=== PATIENT | female | born 1930 | race Caucasian/White ===

== ENCOUNTER 2016-08-23 16:57 | Emergency (ER) | payer OTHER ==
[2016-08-23 17:02] VITALS: BP 188/69
[2016-08-23] MEDS ORDERED: ZOFRAN PO ONE (17:42)
--- NOTE | 2016-08-23 17:44 | PROVIDER DOCUMENTATION ---
HPI-Head Injury - General Source: patient, family - History of Present Illness-Head Injury Head Injury Location: reports: occipital Other injuries associated with incident:: reports: none Quality of Pain: reports: dull Severity: reports: mild Onset/Duration: reports: abrupt, just prior to arrival Timing: reports: improving Method of Injury: reports: direct blow, fell Loss of Consciousness: no loss of consciousness Modifying Factors: improves with: nothing Injury Associated Symptoms: reports: headaches, nausea. denies: back/neck pain , dizziness, vomiting Locality of Occurance: Home Similar Symptoms Previously?: Yes Recently seen or treated by another doctor?: No <Brandon Oliveira - Last Filed: 08/23/16 17:52> <Tete Fonseca - Last Filed: 08/23/16 18:19> - General Chief Complaint: Fall Stated Complaint: fall Time Seen by Provider: 08/23/16 17:41 Allergies/Adverse Reactions: Patient Allergies Allergy/AdvReac Type Severity Reaction Status Date / Time No Known Allergies Allergy Verified 08/23/16 17:55 Home Medications: Aspirin 81 mg PO DAILY 04/18/13 Atorvastatin Calcium [Lipitor] 10 mg PO DAILY 04/18/13 Levothyroxine [Synthroid] 75 microgm PO DAILY 04/19/13 Potassium Chloride [Klor-Con 10] 10 meq PO DAILY 04/19/13 Losartan/Hctz [Hyzaar 100/12.5 mg Tab] 1 each PO DAILY 08/02/13 Cholecalciferol (Vitamin D3) [Vitamin D] 2,000 units PO DAILY 07/04/15 Famotidine [Pepcid] 40 mg PO BID 07/04/15 Psyllium Seed (with Sugar) [Metamucil Packet] 1 each PO DAILY 07/04/15 l Gasseri/B Bifidum/B Longum [Sands' Colon Health Capsule] 1 each PO BID - History of Present Illness-Head Injury Nature of Presenting Problem: patient is a 86 y/o F that presents to the ER with head injury and laceration after falling backwards. Patient had no loc. She shuffles when she walks. She has some nausea. (Brandon Oliveira) Review of Systems - Adult - REVIEW OF SYSTEMS - ADULT ROS:: ROS per family Constitutional: reports: no symptoms reported Eyes: denies: decreased vision, blurred vision, double vision Ears, Nose, Mouth & Throat: denies: epistaxis, loose teeth, mouth/dental pain Cardiovascular: denies: chest pain, palpitations, syncope Respiratory: denies: cough, shortness of breath, wheezing Gastrointestinal: reports: nausea. denies: abdominal pain, diarrhea, vomiting Genitourinary: reports: no symptoms reported Musculoskeletal: reports: no symptoms reported Integumentary: reports: see HPI Neurological: reports: headache/migraines. denies: dizziness/vertigo, syncope Psychiatric: reports: no symptoms reported Endocrine: reports: no symptoms reported Hematologic/Lymphatic: reports: no symptoms reported Allergic/Immunologic: reports: no symptoms reported All Other Systems: Reviewed and Negative <Brandon Oliveira - Last Filed: 08/23/16 17:52> Past History - Adult - PAST MEDICAL HISTORY-ADULT Review of Records: reports: Old Records Reviewed, Nursing Assessment Review, Medications Reviewed Cardiovascular: reports: HTN Neurological: reports: dementia Endocrine/Immune: reports: thyroid disorder (hypo) - PRIOR SURGERIES/PROCEDURES Surgical/Procedure History: reports: hysterectomy, joint replacement (TKA), other (left carotid enderectomy) - IMMUNIZATION STATUS Childhood Immunizations: See Nurse Assessment Flu Vaccine: See Nurse Assessment - FAMILY HISTORY Family History: reviewed, not pertinent - SOCIAL HISTORY Living Situation: family <Brandon Oliveira - Last Filed: 08/23/16 17:52> Physical Exam- Neurological - Physical Exam-Neuro Initial Vital Signs Reviewed: Yes General Appearance: alert, no apparent distress Eye Exam: bilateral eye: normal inspection, PERRL HENMT: moist mucous membranes, normal ENT inspection, TMs normal Head Injury: lacerations (jagged area posterior head about 2.5cm). negative: Srinivasan's Sign, raccoon eyes Neck: non-tender, full range of motion, normal inspection Respiratory: lungs clear, normal breath sounds, no respiratory distress, no accessory muscle use Cardiovascular: regular rate, rhythm, no edema, no murmur Abdominal Exam: normal bowel sounds, non tender, soft Extremity: normal range of motion, non-tender, normal inspection, no pedal edema , pelvis stable inspector assembly Exam: normal hearing, normal speech, PERRL Motor/Sensory: no motor deficit, no sensory deficit Neurologic: inspector assembly II-XII nml as tested, no motor/sensory deficits Integumentary: normal turgor, warm/dry Psych/Mental Status: normal mood/affect, normal thought content, normal thought process, oriented x 3 - Glascow Coma Scale Best Eye Response: (4) open spontaneously Best Verbal Response: (5) oriented Best Motor Response: (6) obeys commands Total Glascow Score: 15 <Brandon Oliveira - Last Filed: 08/23/16 17:52> Progress - CHANGE OF SHIFT REPORT (ED Provider) Report Given and Care Transferred to:: Time of Transfer: 17:53 Items Pending: CT/MRI Results, Other (laceration repair) Tentative Impression of Patient: head injury, laceration <Brandon Oliveira - Last Filed: 08/23/16 17:52> - CT/MRI 1 CT Study: Head Impression: Normal CT Results: normal <Tete Fonseca - Last Filed: 08/23/16 18:19> - PLAN OF CARE/RESULTS Progress/Plan/Lab Results: plan of care-ct head and laceration repair (Brandon Oliveira) plan of care: imaging, wound repair Orders Category Date Time Status Wound Care DIRECTED Care 08/23/16 17:47 Active HEAD W/O CONTRAST [CT] Stat Exams 08/23/16 17:02 Draft Lidocaine 1%/Epi 1:100,000 [Xylocaine 1%/Epi 1:100,000] Med 08/23/16 18:09 Discontinued 20 ml .ROUTE .STK-MED ONE Ondansetron [Zofran] Med 08/23/16 17:42 Discontinued 4 mg PO NOW ONE Vital Signs - 24 hr 08/23/16 16:59 Temperature 98.0 F Pulse Rate 78 Respiratory 16 Rate Blood Pressure 188/69 O2 Sat by Pulse 97 Oximetry (Tete Fonseca) Procedures - LACERATION/WOUND REPAIR/FB Head Wound Location: Other: global Wound Length: 1.5 cm Wound's Depth, Shape: superficial Wound Explored/Foreign Body: clean Irrigated with Saline?: Yes Anesthetic: 1%, Lidocaine w/ Epinephrine Wound Repaired with: [place]-Small (3) <Tete Fonseca - Last Filed: 08/23/16 18:19> Departure <Brandon Oliveira - Last Filed: 08/23/16 17:52> - Departure Time of Disposition Order: 18:17 Certified Medical Emergency: Emergent <Tete Fonseca - Last Filed: 08/23/16 18:19> - Departure DIAGNOSIS: Scalp laceration Qualifiers: Encounter type: initial encounter Qualified Code(s): S01.01XA - Laceration without foreign body of scalp, initial encounter Disposition: HOME 01 Condition: Stable Additional Instructions: ED Follow Up Instructions: You have been treated by a care provider in the Emergency Department. These instructions are being provided to you so you can have an understanding of how to care for yourself upon discharge. Upon discharge from the Emergency Department, you are responsible for making arrangements for follow-up care by a physician of your choice. Come back in 7 days for staple removal. Take all prescribed medications as directed. Return to the Emergency Department immediately for any new or worsening symptoms. You may call the Physician Referral phone number at [phone] to obtain a list of Physicians who are taking new patients. Referrals: Ike Garduno MD [Primary Care Provider] - Attestation - Scribe Verification/Attestation Scribe:: Brandon Oliveira Acting as Scribe for:: Karly Samaniego Scribe documention review:: This chart was documented by a scribe and accurately reflects the service the provider performed and the decisions made by the provider. <Brandon Oliveira - Last Filed: 08/23/16 17:52> - Scribe Verification/Attestation Scribe:: Tete Fonseca Acting as Scribe for:: Pop Reyes Scribe documention review:: This chart was documented by a scribe and accurately reflects the service the provider performed and the decisions made by the provider. <Tete Fonseca - Last Filed: 08/23/16 18:19> Physician Attestation - Physician Attestation I, the provider, attest to the following statement:: Karly Samaniego Physician documentation Attestation:: This documentation recorded by the scribe accurately reflects the service I personally performed and the decisions made by me. <Brandon Oliveira - Last Filed: 08/23/16 17:52>
[2016-08-23] MEDS ORDERED: XYLOCAINE 1%/EPI 1:100,000 ONE (18:09)
--- NOTE | 2016-08-23 18:16 | Diag Imaging Result Document ---
PROCEDURE NAME: HEAD W/O CONTRAST - 08/23/2016 CT BRAIN WITHOUT CONTRAST: Dose reduction technique not used. FINDINGS: Compared to 07/04/2015. No parenchymal hemorrhage. No epidural or subdural hematoma. No subarachnoid hemorrhage. No skull fracture. There is ventricular prominence similar to the prior exam. There are chronic microvascular ischemic changes. No sinus opacification and no air-fluid levels. IMPRESSION: 1. No hemorrhage. No injury. 2. Ventricular prominence with chronic microvascular ischemic changes. A preliminary report was given at 5:49 PM.
== END 2016-08-23 18:26 | disposition home or self-care (01) ==
LOC: EDBD → ED 16:57
DX: S01.01XA Laceration without foreign body of scalp, initial encounter (principal); R51 Headache; R11.0 Nausea; R94.09 Abnormal results of other function studies of central nervous system; I10 Essential (primary) hypertension; E03.9 Hypothyroidism, unspecified; Z79.82 Long term (current) use of aspirin; Z79.899 Other long term (current) drug therapy; Z96.659 Presence of unspecified artificial knee joint; W19.XXXA Unspecified fall, initial encounter
CPT/HCPCS: 70450

== ENCOUNTER 2019-01-17 12:14 | Inpatient (IN) ==
--- NOTE | 2019-01-17 13:33 | Diag Imaging Result Doc PS360 ---
EXAM: CHEST-2 VIEWS HISTORY: ACUTE BRONCHITIS TECHNIQUE: Chest two views COMPARISON: 01/15/2019 FINDINGS: The lungs are well expanded. Tiny left pleural effusion. No cardiomegaly. Mild increased interstitial markings throughout both lungs. IMPRESSION: Small infiltrates versus mild pulmonary edema. Electronically signed by Ming Rizo 01/17/2019 1:31 PM
[2019-01-17 14:04] LABS: BASO# 0.03 X1000 (0.0-0.2); BASO% 0.3 % (0.0-0.8); EOS# 0.49 X1000 (0.0-0.7); EOS% 4.5 % (0.0-10.0); HEMATOCRIT 38.6 % (37.0-47.0); HEMOGLOBIN 12.8 g/dL (12.0-16.0); IMM GRAN# 0.04 X1000 (0.0-0.04); IMM GRAN% 0.4 % (0.0-0.5); LYMPH# 1.54 X1000 (1.2-3.4); LYMPH% 14.1 % (20.5-51.1); MCH 29.9 PG (27-31); MCHC 33.2 g/dL (33-37); MCV 90.2 FL (81-99); MONO# 1.32 X1000 (0.11-0.59); MONO% 12.1 % (1.7-9.3); MPV 10.1 FL (7.4-10.4); NEUT# 7.47 X1000 (1.4-6.5); NEUT% 68.6 % (42.2-75.2); PLT 252 X1000 (130-400); RBC 4.28 XMIL (4.2-5.4); RDW 12.6 % (11.5-14.5); WBC 10.89 X1000 (4.8-10.8)
--- NOTE | 2019-01-17 14:21 | EKG Report ---
Test Performed on : 01/17/2019 2:01:00 PM Test Reason : ACUTE BRONCHITIS Blood Pressure : / mmHG Vent. Rate : 088 BPM Atrial Rate : 088 BPM P-R Int : 162 ms QRS Dur : 076 ms QT Int : 358 ms P-R-T Axes : 044 011 057 degrees QTc Int : 433 ms Normal sinus rhythm. Normal ECG When compared with ECG of 04-JUL-2015 21:38, No significant change was found Confirmed by Jose MENDEZ, Maik Berg ([id number]) on 01/19/2019 11:59:03 AM
[2019-01-17 14:30] LABS: ALB/GLOB RATIO 0.9; ALBUMIN 3.4 g/dL (3.5-5.0); CALCIUM 8.8 mg/dL (8.8-10.2); CREATININE 1.2 mg/dL (0.5-0.9); POTASSIUM 3.9 mmol/L (3.5-5.1); TOTAL BILIRUBIN 0.46 mg/dL (0.20-1.00); TOTAL PROTEIN 7.1 g/dL (6.3-8.3)
[2019-01-17] MEDS: ROCEPHIN 1 GM in NS 50 ML IV SCH (14:39)
[2019-01-17] MEDS: ROBITUSSIN-DM PO PRN ×2 (14:40→22:19)
[2019-01-17] MEDS: POTASSIUM CHLORIDE 10 MEQ in D5 NS 1,000 ML IV SCH (14:40)
[2019-01-17] MEDS ORDERED: METAMUCIL POWDER PACKET PO PRN (17:57)
--- NOTE | 2019-01-17 19:18 | HISTORY AND PHYSICAL ---
HISTORY OF PRESENT ILLNESS: Ms. Garcia is an 88-year-old white female, a known case of hypertension, severe degenerative disk disease in the cervical spine, dementia and hypothyroidism. She was hospitalized because of severe recurrent bronchitis. The patient has not responded to outpatient therapy with steroids and antibiotics. Besides this she has not been eating, has been staying nauseous, is dehydrated and had a change in mental status also. She has been staying very drowsy, is getting more confused. Her Ativan was stopped about 2 days ago, without any improvement. She has some behavior changes. She is very confused. There is no family member at the present time at the bedside. PAST SURGICAL HISTORY: Hysterectomy. REVIEW OF SYSTEMS: Other than persistent productive cough, low-grade fever and change in mental status, noncontributory. PHYSICAL EXAMINATION: VITAL SIGNS: Temperature 98.7 degrees Fahrenheit, pulse 88 per minute, respiratory rate 18 per minute, blood pressure 123/65. HEENT: Head normocephalic. Pupils: PERRLA. Fundus examination not done. ENT examination unremarkable except for severe pharyngeal congestion NECK: Supple. JVP normal. GENERAL: There is no evidence of lymphadenopathy, thyroid enlargement, pedal edema, calf tenderness, anemia, cyanosis or clubbing. EXTREMITIES: Pedal pulses well felt. BREASTS: Exam not done. CHEST: Normal inspection. LUNGS: Some bilateral expiratory wheezing. HEART: PMI in the normal position. Heart sounds normal. No murmur, gallop or rub noted. ABDOMEN: Nondistended. Hernial orifices normal. No guarding, rigidity, free fluid, masses or organomegaly. Bowel sounds normal. RECTAL: Exam deferred. THREAD CLIPPER: Higher functions: The patient is very confused and disoriented. Cranial nerves normal. Motor and sensory system examination unremarkable. Deep tendon reflexes normal. Plantars downgoing. No cerebellar signs or signs of meningeal irritation on locomotor exam. MUSCULOSKELETAL: Skull and spine examination normal for age. SKIN: Exam unremarkable. CLINICAL IMPRESSION: 1. Acute bronchitis. 2. She has some dehydration with loss of skin turgor and dryness of mucous membranes. 3. She has change in mental status also. PLAN: Continue with the current management and start IV fluids as well as IV antibiotics, after drawing the appropriate cultures. cc: Ike Garduno MD
[2019-01-17] MEDS: LIPITOR PO SCH (22:19)
[2019-01-17] MEDS: DITROPAN PO SCH (22:19)
[2019-01-17] MEDS: SEROQUEL PO SCH (22:19)
--- NOTE | 2019-01-18 06:32 | Diag Imaging Result Doc PS360 ---
CT HEAD W/O CONTRAST - 01/17/2019 INDICATION: mental status change COMPARISON: 08/23/2016 FINDINGS: There is new area of encephalomalacia at the right parieto-occipital junction. Otherwise stable severe ventriculomegaly and diffuse atrophy. Stable severe periventricular white matter chronic microvascular disease. No intracranial mass or hemorrhage. The skull is intact. Sinuses are clear. IMPRESSION: Increasing chronic stroke burden. No acute process visible. This exam was performed using automated exposure control, adjustment of mA or kV according to patient size, and/or use of iterative reconstruction technique Electronically signed by Elton Alvarado 01/18/2019 6:29 AM
[2019-01-18 07:24] LABS: ALB/GLOB RATIO 0.9; CALCIUM 8.7 mg/dL (8.8-10.2); CREATININE 0.9 mg/dL (0.5-0.9); POTASSIUM 3.4 mmol/L (3.5-5.1); TOTAL BILIRUBIN 0.38 mg/dL (0.20-1.00); TOTAL PROTEIN 6.2 g/dL (6.3-8.3)
[2019-01-18 08:20] LABS: URINE SOURCE CATH
[2019-01-18 08:25] LABS: BILIRUBIN URINE NEGATIVE (NEGATIVE); BLOOD URINE MODERATE (NEGATIVE); COLOR YELLOW; GLUCOSE URINE NEGATIVE (NEGATIVE); KETONE URINE TRACE mg/dL (NEGATIVE); LEUKOCYTES URINE LARGE (NEGATIVE); NITRITE URINE NEGATIVE (NEGATIVE); PROTEIN URINE 100 mg/dL (NEGATIVE); SP GRAVITY URINE 1.015; TURBIDITY URINE HAZY (CLEAR); UROBILINOGEN URINE NORMAL (NORMAL)
[2019-01-18 08:39] LABS: UR EPITHELIAL CELLS <10 /HPF (<10); URINE BACTERIA NEGATIVE /HPF; URINE RBC TNTC /HPF (<10); URINE WBC TNTC /HPF (<10)
[2019-01-18 08:42] LABS: URINE YEAST PRESENT
--- NOTE | 2019-01-18 09:32 | PROGRESS NOTE ---
DATE: 01/18/2019 SUBJECTIVE: Ms. Garcia was coughing all night. She has an infiltrate on both lung bases more on the right side. She also had a new stroke in the right parietooccipital area that explains the recent mental status change. She is getting IV antibiotics. We will try some Tessalon Perles on her. -4 cc: Ike Garduno MD
[2019-01-18] MEDS: ALEVE PO SCH (09:55)
[2019-01-18] MEDS: ASPIRIN PO SCH (09:55)
[2019-01-18] MEDS: SYNTHROID PO SCH (09:55)
[2019-01-18] MEDS: PRILOSEC PO SCH (09:55)
[2019-01-18] MEDS: COZAAR PO SCH (09:55)
[2019-01-18] MEDS: KLOR-CON PO SCH (09:55)
[2019-01-18] MEDS: LEXAPRO PO SCH (09:55)
[2019-01-18] MEDS: VITAMIN D PO SCH (09:55)
[2019-01-18] MEDS: CULTURELLE PO SCH (09:56)
[2019-01-18] MEDS: TESSALON PO SCH ×3 (09:59→21:36)
[2019-01-18] MEDS: POTASSIUM CHLORIDE 10 MEQ in D5 NS 1,000 ML IV SCH ×2 (10:14→15:49)
[2019-01-18] MEDS: ROCEPHIN 1 GM in NS 50 ML IV SCH (12:58)
[2019-01-18] MEDS: PEPCID PO SCH (16:33)
[2019-01-18] MEDS: DITROPAN PO SCH (21:36)
[2019-01-18] MEDS: LIPITOR PO SCH (21:36)
[2019-01-18] MEDS: SEROQUEL PO SCH (21:36)
[2019-01-18] MEDS: PHENERGAN WITH CODEINE LIQUID PO SCH (21:37)
[2019-01-18] MEDS ORDERED: DUONEB (A & A) INH PRN (23:45)
[2019-01-19] MEDS: POTASSIUM CHLORIDE 10 MEQ in D5 NS 1,000 ML IV SCH ×2 (04:30→17:15)
[2019-01-19] MEDS: ASPIRIN PO SCH (10:36)
[2019-01-19] MEDS: LEXAPRO PO SCH (10:36)
[2019-01-19] MEDS: TESSALON PO SCH ×3 (10:36→17:16)
[2019-01-19] MEDS: PRILOSEC PO SCH (10:36)
[2019-01-19] MEDS: KLOR-CON PO SCH (10:36)
[2019-01-19] MEDS: VITAMIN D PO SCH (10:36)
[2019-01-19] MEDS: COZAAR PO SCH ×2 (10:36→10:40)
[2019-01-19] MEDS: CULTURELLE PO SCH (10:37)
[2019-01-19] MEDS: ALEVE PO SCH (10:37)
[2019-01-19] MEDS: SYNTHROID PO SCH (10:37)
[2019-01-19] MEDS: ROBITUSSIN-DM PO PRN ×2 (10:38→17:16)
--- NOTE | 2019-01-19 12:03 | PROGRESS NOTE ---
DATE: 01/19/2019 Ms. Garcia is still not doing good. She is running low-grade fever, has too numerous RBCs and WBCs in the urine. CT scan has shown the presence of new stroke. She has pneumonia. We are going to repeat the chest x-ray. We will get her some respiratory therapy 3 times a day. -6 cc: Ike Garduno MD
[2019-01-19] MEDS: ROCEPHIN 1 GM in NS 50 ML IV SCH (13:30)
[2019-01-19] MEDS: PEPCID PO SCH (17:16)
[2019-01-19] MEDS: DUONEB (A & A) INH SCH ×2 (19:11→20:55)
[2019-01-19] MEDS: PHENERGAN WITH CODEINE LIQUID PO SCH (22:13)
[2019-01-19] MEDS: SEROQUEL PO SCH (22:15)
[2019-01-19] MEDS: LIPITOR PO SCH (22:15)
[2019-01-19] MEDS: DITROPAN PO SCH (22:15)
[2019-01-20] MEDS: DUONEB (A & A) INH SCH ×4 (03:30→21:53)
[2019-01-20] MEDS: POTASSIUM CHLORIDE 10 MEQ in D5 NS 1,000 ML IV SCH ×2 (06:08→15:41)
[2019-01-20] MEDS: LEXAPRO PO SCH (08:34)
[2019-01-20] MEDS: PRILOSEC PO SCH (08:34)
[2019-01-20] MEDS: TESSALON PO SCH ×3 (08:35→22:04)
[2019-01-20] MEDS: ASPIRIN PO SCH (08:35)
[2019-01-20] MEDS: SYNTHROID PO SCH (08:35)
[2019-01-20] MEDS: CULTURELLE PO SCH (08:35)
[2019-01-20] MEDS: KLOR-CON PO SCH (08:35)
[2019-01-20] MEDS: ALEVE PO SCH (08:35)
[2019-01-20] MEDS: VITAMIN D PO SCH (08:35)
[2019-01-20] MEDS: ROBITUSSIN-DM PO PRN ×2 (08:36→15:40)
--- NOTE | 2019-01-20 10:25 | Diag Imaging Result Doc PS360 ---
EXAM: CHEST-2 VIEWS INDICATION: pneumonia follow up TECHNIQUE: 2 views COMPARISON: 01/17/2019 FINDINGS: There are opacities bilaterally with a basilar predominance, more prominent on the left. This is essentially stable. It is predominantly interstitial. Consider edema +/- pneumonia. No new consolidation is identified. Cardiac silhouette is stable. IMPRESSION: Essentially stable chest. Electronically signed by Bernabe Archibald 01/20/2019 10:23 AM
[2019-01-20] MEDS ORDERED: DULCOLAX PR ONE (11:31)
--- NOTE | 2019-01-20 13:03 | PROGRESS NOTE ---
DATE: 01/20/2019 SUBJECTIVE: The patient is alert. She answers questions. She does have baseline confusion. Her clinical admissions manager is with her now and says she is back to her baseline. She was that at home and doing better overall. The clinical admissions manager says the cough has diminished with Dr. Garduno's medications of Tessalon and Phenergan VC at night. OBJECTIVE: General: Chronic hoarseness noted. CV: RRR without murmur. Lungs: Crackles at the lung bases prominently bilaterally, right slightly greater than left. Abdomen: Soft. Active bowel sounds. Mild distention. No bowel movement since admission. Extremities: No calf tenderness, cords or edema. Neurologic: She moves all extremities well. She is alert and oriented x1. Baseline confusion noted but pleasant. DIAGNOSTIC DATA: Labs reviewed from admission and from 01/18/2019. Chest x-ray today reveals persistent opacities bilateral lower lung peng, stable. ASSESSMENT: 1. Bilateral lung infiltrates, likely pneumonia. 2. History of CVA in the past with some extension, now back to baseline. 3. Chronic dementia. 4. Hypothyroidism. 5. Hypertension. 6. Degenerative disk disease of the cervical spine. 7. Constipation. PLAN: Continue Rocephin and add Zithromax. Continue DuoNeb q.i.d. Continue antitussives as initiated by Dr. Garduno. We will give Dulcolax suppository x1 and add MiraLAX daily. Continue antihypertensives of losartan. Repeat laboratory values in the morning. Add low-dose Lovenox for prevention of DVT as she is inactive. cc: MD Ike Ayala MD
[2019-01-20] MEDS: ROCEPHIN 1 GM in NS 50 ML IV SCH (15:41)
[2019-01-20] MEDS: MIRALAX PO SCH (15:42)
[2019-01-20] MEDS: ZITHROMAX 500 MG/NS 500 MG/250 ML IVPB IV SCH (15:48)
[2019-01-20] MEDS: LIPITOR PO SCH (21:58)
[2019-01-20] MEDS: SEROQUEL PO SCH (21:58)
[2019-01-20] MEDS: LOVENOX SUBQ SCH (21:58)
[2019-01-20] MEDS: DITROPAN PO SCH (21:59)
[2019-01-20] MEDS: PHENERGAN WITH CODEINE LIQUID PO SCH (21:59)
[2019-01-20] MEDS: PEPCID PO SCH (22:04)
[2019-01-21] MEDS: DUONEB (A & A) INH SCH ×4 (03:45→21:05)
[2019-01-21 06:45] LABS: BASO# 0.04 X1000 (0.0-0.2); BASO% 0.4 % (0.0-0.8); EOS# 1.07 X1000 (0.0-0.7); EOS% 10.7 % (0.0-10.0); HEMOGLOBIN 10.3 g/dL (12.0-16.0); IMM GRAN# 0.13 X1000 (0.0-0.04); IMM GRAN% 1.3 % (0.0-0.5); LYMPH# 2.09 X1000 (1.2-3.4); LYMPH% 20.9 % (20.5-51.1); MCH 29.6 PG (27-31); MCHC 32.2 g/dL (33-37); MONO# 1.23 X1000 (0.11-0.59); MONO% 12.3 % (1.7-9.3); MPV 9.3 FL (7.4-10.4); NEUT# 5.46 X1000 (1.4-6.5); NEUT% 54.4 % (42.2-75.2); PLT 322 X1000 (130-400); RBC 3.48 XMIL (4.2-5.4); WBC 10.02 X1000 (4.8-10.8)
[2019-01-21 07:01] LABS: CALCIUM 8.6 mg/dL (8.8-10.2); CREATININE 0.9 mg/dL (0.5-0.9); POTASSIUM 3.8 mmol/L (3.5-5.1)
[2019-01-21] MEDS: VITAMIN D PO SCH (08:18)
[2019-01-21] MEDS: ALEVE PO SCH (08:18)
[2019-01-21] MEDS: PRILOSEC PO SCH (08:18)
[2019-01-21] MEDS: ASPIRIN PO SCH (08:19)
[2019-01-21] MEDS: LEXAPRO PO SCH (08:19)
[2019-01-21] MEDS: SYNTHROID PO SCH (08:20)
[2019-01-21] MEDS: KLOR-CON PO SCH (08:20)
[2019-01-21] MEDS: MIRALAX PO SCH (08:20)
[2019-01-21] MEDS: TESSALON PO SCH ×3 (08:20→18:23)
[2019-01-21] MEDS: CULTURELLE PO SCH (08:20)
--- NOTE | 2019-01-21 10:43 | PROGRESS NOTE ---
DATE: 01/21/2019 SUBJECTIVE: Patient is alert. She is sitting up, drinking her coffee. Her guide dog mobility instructor is with her this morning. She has been stable to slightly improved. OBJECTIVE: Temperature maximum 100.1 degrees, current temperature 97.8, pulse 91, respirations 22, blood pressure 123/51, O2 saturation on 3 L 100%. Cardiovascular: RRR. Lungs: Crackles, bilateral lower lung peng. Abdomen: Soft, nontender, nondistended. Bowel movement x1 last night after Dulcolax suppository. Extremities: No calf tenderness, cords, or edema. Neurological: Baseline mild to moderate confusion. Alert, answers questions. Moves all extremities. DIAGNOSTIC STUDIES: White count, hemoglobin 10.3, platelets 322,000. Sodium 142, potassium 3.8, chloride 108, CO2 of 24, BUN 11, creatinine 0.9, calcium 8.6. Chest x-ray yesterday morning revealed opacities, bilateral lung peng at the basilar areas. ASSESSMENT: 1. Bilateral lung infiltrates, likely pneumonia. 2. History of cerebrovascular accident in the past with some extension recently per CT scan. 3. Chronic dementia. 4. Hypothyroidism. 5. Hypertension. 6. Degenerative disk disease of the cervical spine. 7. Chronic constipation. PLAN: Continue daily MiraLAX. Continue Rocephin and Zithromax, DuoNeb q.i.d. Antitussives as initiated by Dr. Garduno. Continue losartan and low-dose Lovenox is on board for DVT prevention. We will repeat chest x-ray and labs in the morning. cc: MD Ike Ayala MD
[2019-01-21] MEDS: ROBITUSSIN-DM PO PRN (12:37)
[2019-01-21] MEDS: POTASSIUM CHLORIDE 10 MEQ in D5 NS 1,000 ML IV SCH (15:35)
[2019-01-21] MEDS: PEPCID PO SCH ×2 (15:35→18:22)
[2019-01-21] MEDS: ZITHROMAX 500 MG/NS 500 MG/250 ML IVPB IV SCH (15:35)
[2019-01-21] MEDS: ROCEPHIN 1 GM in NS 50 ML IV SCH (15:35)
[2019-01-21] MEDS: PHENERGAN WITH CODEINE LIQUID PO SCH (21:06)
[2019-01-21] MEDS: LOVENOX SUBQ SCH (21:07)
[2019-01-21] MEDS: DITROPAN PO SCH (21:07)
[2019-01-21] MEDS: LIPITOR PO SCH (21:07)
[2019-01-21] MEDS: SEROQUEL PO SCH (21:07)
[2019-01-22] MEDS: DUONEB (A & A) INH SCH ×4 (03:26→20:10)
[2019-01-22 06:35] LABS: BASO# 0.04 X1000 (0.0-0.2); BASO% 0.4 % (0.0-0.8); EOS# 0.87 X1000 (0.0-0.7); EOS% 9.2 % (0.0-10.0); HEMATOCRIT 34.3 % (37.0-47.0); HEMOGLOBIN 10.9 g/dL (12.0-16.0); IMM GRAN# 0.12 X1000 (0.0-0.04); IMM GRAN% 1.3 % (0.0-0.5); LYMPH% 21.1 % (20.5-51.1); MCHC 31.8 g/dL (33-37); MCV 91.2 FL (81-99); MONO# 0.73 X1000 (0.11-0.59); MONO% 7.7 % (1.7-9.3); MPV 9.2 FL (7.4-10.4); NEUT# 5.72 X1000 (1.4-6.5); NEUT% 60.3 % (42.2-75.2); PLT 365 X1000 (130-400); RBC 3.76 XMIL (4.2-5.4); RDW 12.9 % (11.5-14.5); WBC 9.48 X1000 (4.8-10.8)
[2019-01-22 07:10] LABS: CALCIUM 8.9 mg/dL (8.8-10.2); CREATININE 0.9 mg/dL (0.5-0.9)
--- NOTE | 2019-01-22 08:03 | Diag Imaging Result Doc PS360 ---
CHEST-2 VIEWS - 01/22/2019 INDICATION: bi lat infiltrates COMPARISON: 01/20/2019 FINDINGS: Lung volumes are slightly lower. There is slight worsening in the extensive bilateral interstitial infiltrates, nonspecific. No significant pleural effusion. Heart size and pulmonary vascularity remain stable. IMPRESSION: No change from prior. Significant bilateral interstitial infiltrates, nonspecific but compatible with pulmonary edema. Electronically signed by Elton Alvarado 01/22/2019 8:01 AM
[2019-01-22] MEDS: VITAMIN D PO SCH (09:23)
[2019-01-22] MEDS: MIRALAX PO SCH (09:23)
[2019-01-22] MEDS: PRILOSEC PO SCH (09:23)
[2019-01-22] MEDS: ASPIRIN PO SCH (09:23)
[2019-01-22] MEDS: CULTURELLE PO SCH (09:23)
[2019-01-22] MEDS: COZAAR PO SCH (09:24)
[2019-01-22] MEDS: KLOR-CON PO SCH (09:24)
[2019-01-22] MEDS: LEXAPRO PO SCH (09:24)
[2019-01-22] MEDS: ALEVE PO SCH (09:24)
[2019-01-22] MEDS: SYNTHROID PO SCH (09:25)
[2019-01-22] MEDS: TESSALON PO SCH ×3 (09:25→16:00)
--- NOTE | 2019-01-22 10:03 | PROGRESS NOTE ---
DATE: 01/22/2019 Ms. Garcia is not doing well. Her white count is normal. However, her chest x- ray shows that it appears like she is aspirating. She has not improved much. Lungs reveal some expiratory wheezing and some occasional rales at the bases. She coughs at night and during the daytime. ProBNP waselevated but she does not seem to be having too much trouble breathing. She probably is in congestive heart failure and we will give her some Lasix as well as she is already on losartan and medications for hypertension. Will get Lasix 20 mg IV daily. We will try to get the speech or swallowing studies and probably get a pulmonary consult with Dr. Hunt. Overall condition is unchanged. -3 cc: Ike Garduno MD MTDD
[2019-01-22] MEDS: ROBITUSSIN-DM PO PRN ×2 (11:11→17:26)
--- NOTE | 2019-01-22 11:59 | Diag Imaging Result Doc PS360 ---
CT THORAX W/O CONTRAST - 01/22/2019 INDICATION: non-resolving pneumonia COMPARISON: Prior chest x-rays FINDINGS: There is severe patient motion artifact. No definite adenopathy. There is a relatively large hiatal hernia. There are small bilateral pleural effusions. There is cardiomegaly. There is mild scattered calcified coronary artery disease. There is conventional peripheral pulmonary fibrosis with some moderate honeycombing. There are also patchy, mixed infiltrates diffusely and bilaterally. These are mostly interstitial. No suspicious bony lesions. IMPRESSION: Pulmonary fibrosis. Bilateral mixed indeterminate infiltrates. At least a component of common or edema is present. There is cardiomegaly. Small bilateral pleural effusions. This exam was performed using automated exposure control, adjustment of mA or kV according to patient size, and/or use of iterative reconstruction technique Electronically signed by Elton Alvarado 01/22/2019 11:56 AM
[2019-01-22] MEDS: POTASSIUM CHLORIDE 10 MEQ in D5 NS 1,000 ML IV SCH (15:51)
[2019-01-22] MEDS: ROCEPHIN 1 GM in NS 50 ML IV SCH (15:51)
[2019-01-22] MEDS: PEPCID PO SCH (15:59)
[2019-01-22] MEDS: ZITHROMAX 500 MG/NS 500 MG/250 ML IVPB IV SCH (17:26)
[2019-01-22] MEDS ORDERED: LASIX IV ONE (18:12)
[2019-01-22] MEDS: LASIX IV SCH (19:20)
[2019-01-22] MEDS: PHENERGAN WITH CODEINE LIQUID PO SCH (21:24)
[2019-01-22] MEDS: DITROPAN PO SCH (21:24)
[2019-01-22] MEDS: SEROQUEL PO SCH (21:24)
[2019-01-22] MEDS: LOVENOX SUBQ SCH (21:24)
[2019-01-22] MEDS: LIPITOR PO SCH (21:24)
[2019-01-23] MEDS: DUONEB (A & A) INH SCH ×4 (03:12→21:56)
--- NOTE | 2019-01-23 08:00 | PULMONOLOGY CONSULTATION ---
DATE: 01/22/2019 REQUESTING PHYSICIAN: Dr. Garduno. REASON FOR CONSULTATION: Nonresolving pneumonia, possible aspiration. HISTORY OF PRESENT ILLNESS: Ms. Garcia is an 88-year-old white female, no tobacco use noted, who was admitted to the hospital with increased cough, nausea, changes in mental status which failed improvement on outpatient therapy. The patient was initiated on ceftriaxone and azithromycin. She continues to have cough and shortness of breath. She is a very poor historian. PAST MEDICAL HISTORY: 1. Dementia. 2. Hypothyroidism. 3. History of Clostridium difficile colitis. 4. Hypertension. 5. Status post bilateral knee replacement. 6. Status post hysterectomy. 7. Status post carotid artery surgery. 8. History of bladder tack procedure. 9. Gastroesophageal reflux disease and peptic ulcer disease. SOCIAL HISTORY: The patient lives at home, but her daughter stays with her during the day and sitters stay with her at night. No tobacco or alcohol use listed. FAMILY HISTORY: Not immediately available for review. REVIEW OF SYSTEMS: Notable for cough, shortness of breath "for some time", the patient is oriented to name. She is not oriented to date or hospital. PHYSICAL EXAMINATION: General: Reveals a pleasant, well-developed, well-nourished female, who reports she is short of breath, but has no increased work of breathing. Vital Signs: Current temperature 98.2 degrees. HEENT: Pupils are equal and reactive. Oropharynx appears clear. Neck: Supple. Chest: Reveals crackles throughout both lung bases with occasional rhonchi. Cardiac Exam: S1, S2. Abdomen: Soft. Extremities: Reveal trace edema. LABS/X-RAYS: CT scan of the thorax was ordered by this practitioner and is reviewed. The patient has a moderate hiatal hernia, component of pulmonary fibrosis and infiltrates. White blood count on admission to the hospital 16.92. White blood count today 9.48, platelet count 365,000. IMPRESSION: An 88-year-old with: 1. Acute hypoxemic respiratory failure. 2. Bibasilar infiltrates consistent with pneumonia. Aspiration is suggested. 3. Component of pulmonary fibrosis. 4. Hiatal hernia. 5. Dementia. RECOMMENDATIONS: 1. Consider transferring patient to an oral antibiotic such as Augmentin now that her white blood count has normalized. 2. Agree with speech therapy evaluation. Would recommend modified barium swallow along with traditional barium swallow given her large hiatal hernia. 3. Continue oxygen for hypoxemic respiratory failure. 4. Continue bronchial hygiene. 5. Agree with end of life discussions that have been held. The patient currently is a do not resuscitate level 1/allow natural , which is appropriate for this patient given her dementia and comorbidities. cc: MD Ike Mobley MD
[2019-01-23] MEDS: MIRALAX PO SCH (09:07)
[2019-01-23] MEDS: VITAMIN D PO SCH (09:08)
[2019-01-23] MEDS: PRILOSEC PO SCH (09:08)
[2019-01-23] MEDS: ASPIRIN PO SCH (09:08)
[2019-01-23] MEDS: TESSALON PO SCH ×3 (09:08→16:54)
[2019-01-23] MEDS: LEXAPRO PO SCH (09:08)
[2019-01-23] MEDS: LASIX IV SCH (09:08)
[2019-01-23] MEDS: KLOR-CON PO SCH (09:08)
[2019-01-23] MEDS: SYNTHROID PO SCH (09:08)
[2019-01-23] MEDS: CULTURELLE PO SCH (09:12)
[2019-01-23] MEDS: ALEVE PO SCH (09:13)
--- NOTE | 2019-01-23 11:17 | ECHO REPORT ---
ORDER DATE: 01/22/2019 INDICATION: Pneumonia, possible CHF. FINDINGS: 1. Right atrium appears normal in size at 3.6 cm. 2. Moderate tricuspid regurgitation. RV systolic pressure of 58, suggesting pulmonary hypertension. 3. Normal RV size and systolic function. 4. No significant pulmonic insufficiency. 5. Moderate left atrial enlargement with a volume index of 35. 6. No mitral valve prolapse. Moderate mitral regurgitation. 7. Normal LV size, end-diastolic dimension of 4.6. Normal wall thicknesses with a posterior and interventricular septal thickness of 0.8 and 0.7 cm respectively. Normal ejection fraction with an estimated EF of 55-60% with normal wall motion. 8. Aortic valve opens well. It is trileaflet. The valve is sclerotic but not stenotic. There is no insufficiency. 9. Aorta appears normal in visualized segments. 10. No pericardial effusion seen. cc: MD Ike Enamorado MD
[2019-01-23] MEDS: ZITHROMAX 500 MG/NS 500 MG/250 ML IVPB IV SCH (11:32)
--- NOTE | 2019-01-23 12:10 | PROGRESS NOTE ---
DATE: 01/23/2019 Ms. Garcia had a pulmonary consultation yesterday. She had Speech Therapy consult. Continue with current management. The CT scan of the chest revealed the presence of some fluid, pulmonary fibrosis, and possible infiltrate. We will continue with the current management on her. -5 cc: Ike Garduno MD
[2019-01-23] MEDS: AUGMENTIN LIQUID PO SCH ×2 (12:40→22:03)
[2019-01-23] MEDS: PEPCID PO SCH (16:54)
[2019-01-23] MEDS: POTASSIUM CHLORIDE 10 MEQ in D5 NS 1,000 ML IV SCH (18:27)
--- NOTE | 2019-01-23 21:51 | PULMONOLOGY PROGRESS NOTE ---
DATE: 01/23/2019 SUBJECTIVE: The patient is awake, alert and conversant. She has difficulty remembering yesterday, but does report her breathing is better today. OBJECTIVE: Vital Signs: The patient has been afebrile for the last 24 hours. Blood pressure 116/76, heart rate 98, respiratory rate 20, oxygen saturation 95% on 2 L per nasal cannula. HEENT: Pupils are equal and reactive. Oropharynx appears clear. Neck: Supple. Chest: Reveals occasional rhonchi bilaterally. Cardiac exam: S1-S2. Abdomen: Soft. Extremities: Without edema. LABORATORIES/ADDITIONAL INFORMATION: Speech therapy note reviewed. The patient was given sips of water without signs or symptoms of aspiration. She was given a shayna cracker without signs or symptoms of aspiration. She indicated the patient might benefit from a modified barium swallow. No chemistries or CBC today. IMPRESSION: An 88-year-old with: 1. Aspiration pneumonia. 2. Acute hypoxemic respiratory failure. 3. Hiatal hernia. 4. Dementia. 5. Component of pulmonary fibrosis. RECOMMENDATIONS: 1. Continue antibiotics. Agree with transitioning patient to Augmentin. 2. Check a routine barium swallow to rule out gross aspiration and to evaluate passage of barium through her hiatal hernia. 3. Continue oxygen for hypoxemic respiratory failure. 4. Continue bronchial hygiene. 5. Agree with current end of life decisions. The patient will be allowed to have a natural if she has a life ending cardiac or pulmonary event. cc: MD Ike Mobley MD
[2019-01-23] MEDS: PHENERGAN WITH CODEINE LIQUID PO SCH (22:03)
[2019-01-23] MEDS: LIPITOR PO SCH (22:04)
[2019-01-23] MEDS: LOVENOX SUBQ SCH (22:04)
[2019-01-23] MEDS: DITROPAN PO SCH (22:04)
[2019-01-23] MEDS: SEROQUEL PO SCH (22:04)
[2019-01-24] MEDS: DUONEB (A & A) INH SCH ×4 (03:46→21:41)
[2019-01-24] MEDS: AUGMENTIN LIQUID PO SCH ×3 (09:00→22:32)
--- NOTE | 2019-01-24 09:08 | PROGRESS NOTE ---
DATE: 01/24/2019 SUBJECTIVE: Ms. Garcia is feeling somewhat better. Coughing is better. Echocardiogram shows ejection fraction of around 55 to 60 percent. She has some tricuspid regurgitation. Her physical exam otherwise is unchanged. There is pulmonary congestion. We are going to repeat the chest x- ray and probably do the barium swallow, and start physical therapy on her. -5 cc: Ike Garduno MD
--- NOTE | 2019-01-24 09:57 | Diag Imaging Result Doc PS360 ---
EXAM: BA SWALLOW-ESOPHAGUS 01/24/2019 HISTORY: evaluate esophagus and HH TECHNIQUE: Air contrast barium swallow, seven images, fluoroscopy time one minute 31 seconds, dose 12.1 cGy. COMMENT: The patient was able to swallow barium. There is marked tertiary contractions and some spasm in the mid thoracic esophagus. There is at least one diverticulum present in the midesophagus on the left. There is a fairly large hiatal hernia. No reflux was demonstrated during the examination. IMPRESSION: Presbyesophagus with midthoracic diverticulum. Hiatal hernia. Electronically signed by Michael Woody 01/24/2019 9:55 AM
[2019-01-24] MEDS: TESSALON PO SCH ×3 (10:02→17:57)
[2019-01-24] MEDS: COZAAR PO SCH (10:03)
[2019-01-24] MEDS: LEXAPRO PO SCH (10:03)
[2019-01-24] MEDS: CULTURELLE PO SCH (10:03)
[2019-01-24] MEDS: VITAMIN D PO SCH (10:03)
[2019-01-24] MEDS: SYNTHROID PO SCH (10:04)
[2019-01-24] MEDS: KLOR-CON PO SCH (10:04)
[2019-01-24] MEDS: PRILOSEC PO SCH (10:04)
[2019-01-24] MEDS: ASPIRIN PO SCH (10:04)
[2019-01-24] MEDS: ALEVE PO SCH (10:04)
[2019-01-24] MEDS: MIRALAX PO SCH (10:05)
[2019-01-24] MEDS: LASIX IV SCH (10:05)
[2019-01-24] MEDS: ZITHROMAX 500 MG/NS 500 MG/250 ML IVPB IV SCH (12:23)
[2019-01-24] MEDS: POTASSIUM CHLORIDE 10 MEQ in D5 NS 1,000 ML IV SCH ×2 (12:24→22:37)
[2019-01-24] MEDS: PEPCID PO SCH (17:57)
[2019-01-24] MEDS: LIPITOR PO SCH (22:32)
[2019-01-24] MEDS: SEROQUEL PO SCH (22:32)
[2019-01-24] MEDS: DITROPAN PO SCH (22:32)
[2019-01-24] MEDS: PHENERGAN WITH CODEINE LIQUID PO SCH (22:34)
[2019-01-24] MEDS: LOVENOX SUBQ SCH (22:34)
--- NOTE | 2019-01-24 23:10 | PULMONOLOGY PROGRESS NOTE ---
DATE: 01/24/2019 SUBJECTIVE: The patient is awake, alert, and conversant. She is resting comfortably. She denies cough or sputum production. OBJECTIVE: Vital Signs: The patient has been afebrile for the last 24 hours. Blood pressure 151/81, heart rate 86, respiratory rate 16, oxygen saturation 93% on 2 L per nasal cannula. HEENT: Pupils are equal and reactive. Oropharynx is clear. Neck: Supple. Chest: Reveals crackles and rhonchi bilaterally, predominantly in the bases. Cardiac exam: S1, S2. Abdomen: Soft. Extremities: Without edema. LABORATORIES: Barium swallow reveals a large hiatal hernia, presbyesophagus, with a mid thoracic diverticulum. IMPRESSION: An 88-year-old with: 1. Aspiration pneumonia. 2. Hiatal hernia. 3. Presbyesophagus with small diverticulum. 4. Acute hypoxemic respiratory failure. 5. Dementia. 6. Pulmonary fibrosis. DISCUSSION: An 88-year-old with problems outlined above. Clinically, she continues to improve. RECOMMENDATIONS: 1. Agree with followup chest x-ray tomorrow. 2. Continue oxygen for hypoxemic respiratory failure. 3. Continue bronchial hygiene. 4. Hopefully discharge soon if she continues to improve. cc: MD Ike Mobley MD
[2019-01-25] MEDS: DUONEB (A & A) INH SCH ×4 (03:49→21:05)
[2019-01-25] MEDS: AUGMENTIN LIQUID PO SCH ×3 (04:45→21:26)
[2019-01-25] MEDS: ROBITUSSIN-DM PO PRN ×2 (07:05→17:05)
--- NOTE | 2019-01-25 07:53 | Diag Imaging Result Doc PS360 ---
EXAM: CHEST-2 VIEWS HISTORY: pneumonia follow up TECHNIQUE: Chest two views COMPARISON: 01/22/2019 FINDINGS: The lungs are well expanded. No cardiomegaly. Mild increased interstitial markings. These are less pronounced than on the prior study. Trace pleural fluid. This has decreased compared to the prior study. There is a small amount of barium near the gastroesophageal junction. IMPRESSION: Mild interval improvement. Electronically signed by Ming Rizo 01/25/2019 7:51 AM
[2019-01-25] MEDS: MIRALAX PO SCH (09:40)
[2019-01-25] MEDS: PRILOSEC PO SCH (09:41)
[2019-01-25] MEDS: CULTURELLE PO SCH (09:41)
[2019-01-25] MEDS: LASIX IV SCH (09:41)
[2019-01-25] MEDS: LEXAPRO PO SCH (09:42)
[2019-01-25] MEDS: ALEVE PO SCH (09:42)
[2019-01-25] MEDS: VITAMIN D PO SCH (09:42)
[2019-01-25] MEDS: TESSALON PO SCH ×3 (09:42→17:06)
[2019-01-25] MEDS: KLOR-CON PO SCH (09:42)
[2019-01-25] MEDS: SYNTHROID PO SCH (09:42)
[2019-01-25] MEDS: ASPIRIN PO SCH (09:42)
--- NOTE | 2019-01-25 09:53 | PROGRESS NOTE ---
DATE: 01/25/2019 Ms. Garcia is doing fairly well. She is not cooperating with physical therapy. Chest x-ray shows improvement. Barium swallow exam revealed presbyesophagus with a diverticulum. She does not have that much trouble swallowing. The family is now indicating their desire to go to rehab. We will try to work on that. In the meantime, we will continue the current antibiotics and the current management. cc: Ike Garduno MD
[2019-01-25] MEDS: ZITHROMAX 500 MG/NS 500 MG/250 ML IVPB IV SCH (11:17)
[2019-01-25] MEDS: HALL'S COUGH LOZENGE MT PRN (13:06)
[2019-01-25] MEDS: PEPCID PO SCH (17:06)
--- NOTE | 2019-01-25 20:29 | PULMONOLOGY PROGRESS NOTE ---
DATE: 01/25/2019 SUBJECTIVE: The patient is awake, alert, conversant. She denies shortness of breath. She denies cough or sputum production. OBJECTIVE: Vital Signs: The patient has been afebrile for the last 24 hours. Blood pressure 139/89, heart rate 81, respiratory rate 18, oxygen saturation 95% on nasal cannula. HEENT: Pupils are equal and reactive. Oropharynx appears clear. Neck: Supple. Chest: Reveals faint crackles in the bases. Cardiac: S1, S2. Abdomen: Soft and without hepatosplenomegaly. Extremities: Reveal trace edema. LABORATORIES: Chest x-ray reveals increased interstitial markings which are less pronounced than on prior study. Decreased infiltrates. Residual barium at the gastroesophageal junction. IMPRESSION: An 88-year-old with: 1. Aspiration pneumonia. 2. Hiatal hernia. 3. Presbyesophagus. 4. Acute hypoxemic respiratory failure. 5. Component of pulmonary fibrosis. 6. Dementia. DISCUSSION: An 88-year-old with problems outlined above. She continues to improve. Dr. Garduno is working towards getting patient transferred to a rehab bed. RECOMMENDATIONS: 1. Continue current antibiotic regimen. 2. Continue oxygen for hypoxemic respiratory failure. 3. Continue bronchial hygiene. 4. Anticipate discharge for a rehab stay. cc: MD Ike Mobley MD
[2019-01-25] MEDS: LOVENOX SUBQ SCH (21:25)
[2019-01-25] MEDS: SEROQUEL PO SCH (21:26)
[2019-01-25] MEDS: DITROPAN PO SCH (21:26)
[2019-01-25] MEDS: PHENERGAN WITH CODEINE LIQUID PO SCH (21:27)
[2019-01-25] MEDS: LIPITOR PO SCH (21:28)
[2019-01-26] MEDS: DUONEB (A & A) INH SCH ×4 (02:45→20:23)
[2019-01-26] MEDS: POTASSIUM CHLORIDE 10 MEQ in D5 NS 1,000 ML IV SCH (03:17)
[2019-01-26] MEDS: ROBITUSSIN-DM PO PRN ×2 (04:00→10:36)
[2019-01-26] MEDS: AUGMENTIN LIQUID PO SCH ×3 (04:22→20:47)
[2019-01-26] MEDS: LEXAPRO PO SCH (10:00)
[2019-01-26] MEDS: MIRALAX PO SCH (10:00)
[2019-01-26] MEDS: VITAMIN D PO SCH (10:00)
[2019-01-26] MEDS: PRILOSEC PO SCH (10:00)
[2019-01-26] MEDS: ASPIRIN PO SCH (10:00)
[2019-01-26] MEDS: KLOR-CON PO SCH (10:00)
[2019-01-26] MEDS: ALEVE PO SCH (10:00)
[2019-01-26] MEDS: TESSALON PO SCH (10:01)
[2019-01-26] MEDS: SYNTHROID PO SCH (10:01)
[2019-01-26] MEDS: COZAAR PO SCH (10:01)
[2019-01-26] MEDS: LASIX IV SCH (10:01)
[2019-01-26] MEDS: CULTURELLE PO SCH (10:01)
[2019-01-26] MEDS: ZITHROMAX 500 MG/NS 500 MG/250 ML IVPB IV SCH (11:56)
[2019-01-26] MEDS: PEPCID PO SCH (17:16)
[2019-01-26] MEDS: MUCINEX DM PO SCH (20:47)
[2019-01-26] MEDS: SEROQUEL PO SCH (20:47)
[2019-01-26] MEDS: LOVENOX SUBQ SCH (20:47)
[2019-01-26] MEDS: LIPITOR PO SCH (20:47)
[2019-01-26] MEDS: DITROPAN PO SCH (20:47)
[2019-01-27] MEDS: DUONEB (A & A) INH SCH ×4 (03:54→20:00)
[2019-01-27] MEDS: AUGMENTIN LIQUID PO SCH ×3 (05:44→22:33)
[2019-01-27] MEDS: PHENERGAN WITH CODEINE LIQUID PO SCH ×2 (05:45→22:30)
[2019-01-27] MEDS: POTASSIUM CHLORIDE 10 MEQ in D5 NS 1,000 ML IV SCH (06:10)
--- NOTE | 2019-01-27 07:11 | Diag Imaging Result Doc PS360 ---
EXAM: CHEST-1 VIEW HISTORY: SOB TECHNIQUE: Chest single view COMPARISON: 01/25/2019 FINDINGS: Poor inspiratory effort. There are increased interstitial markings throughout both lungs. These are more pronounced than on the prior study. Questionable trace pleural fluid. No cardiomegaly. IMPRESSION: Interval worsening. Electronically signed by Ming Rizo 01/27/2019 7:09 AM
[2019-01-27 07:14] LABS: BASO# 0.04 X1000 (0.0-0.2); BASO% 0.5 % (0.0-0.8); EOS# 0.64 X1000 (0.0-0.7); HEMATOCRIT 35.4 % (37.0-47.0); HEMOGLOBIN 11.4 g/dL (12.0-16.0); IMM GRAN# 0.04 X1000 (0.0-0.04); IMM GRAN% 0.5 % (0.0-0.5); LYMPH# 1.47 X1000 (1.2-3.4); LYMPH% 18.4 % (20.5-51.1); MCH 29.5 PG (27-31); MCHC 32.2 g/dL (33-37); MCV 91.7 FL (81-99); MONO# 0.69 X1000 (0.11-0.59); MONO% 8.6 % (1.7-9.3); MPV 8.9 FL (7.4-10.4); PLT 390 X1000 (130-400); RBC 3.86 XMIL (4.2-5.4); RDW 12.8 % (11.5-14.5); WBC 7.98 X1000 (4.8-10.8)
[2019-01-27 07:55] LABS: CALCIUM 8.7 mg/dL (8.8-10.2); CREATININE 0.9 mg/dL (0.5-0.9); POTASSIUM 3.8 mmol/L (3.5-5.1)
[2019-01-27] MEDS: MIRALAX PO SCH (08:06)
[2019-01-27] MEDS: LASIX IV SCH (08:06)
[2019-01-27] MEDS: KLOR-CON PO SCH (08:06)
[2019-01-27] MEDS: ALEVE PO SCH (08:06)
[2019-01-27] MEDS: PRILOSEC PO SCH (08:06)
[2019-01-27] MEDS: VITAMIN D PO SCH (08:06)
[2019-01-27] MEDS: ASPIRIN PO SCH (08:06)
[2019-01-27] MEDS: CULTURELLE PO SCH (08:07)
[2019-01-27] MEDS: SYNTHROID PO SCH (08:07)
[2019-01-27] MEDS: MUCINEX DM PO SCH ×2 (08:07→22:32)
[2019-01-27] MEDS: LEXAPRO PO SCH (08:07)
[2019-01-27] MEDS: ZITHROMAX 500 MG/NS 500 MG/250 ML IVPB IV SCH (12:51)
[2019-01-27] MEDS ORDERED: LASIX IV ONE (15:10)
[2019-01-27] MEDS: PEPCID PO SCH (16:08)
--- NOTE | 2019-01-27 17:15 | PROGRESS NOTE ---
DATE: 01/27/2019 SUBJECTIVE: 88-year-old white female was sitting outside, caregiver was there. She is a poor historian. She has underlying dementia. Obviously, admitted to the hospital for pneumonia. No complaints. She is not eating full lunch. REVIEW OF SYSTEMS: None reported. PAST MEDICAL HISTORY: Reviewed. PAST SURGICAL HISTORY: Reviewed. MEDICATIONS: Reviewed. ALLERGIES: Not known. EXAMINATION: Temperature is 97.8 degrees, pulse is 87, blood pressure is 116 x 61, 94% on room air on 2 L.HEENT: Within normal limits. Neck: Supple. Chest: Bilateral air entry. Heart: Sounds are regular. Abdomen: Belly is soft, nontender. No obvious deficits. INVESTIGATIONS: White cell count 7.9, hematocrit 35, platelets 390,000, SMA 7. Sodium 137, potassium 3.8, chloride 98, BUN 13, creatinine 0.9, calcium 8.7. Urine cultures positive for yeast. Blood cultures were negative. Chest x-ray on 01/27/2019 worsening of infiltrates with bilateral nodular disease. Chest CT on 01/22/2019, pulmonary fibrosis, indeterminate infiltrates, cardiomegaly. ASSESSMENT AND PLAN: 1. Intermittent dysphagia, not eating well due to presbyesophagus, mid thoracic diverticulum, hiatal hernia. 2. Aspiration pneumonia with worsening of infiltrates. 3. Underlying dementia. 4. History of cardiomegaly echocardiography ejection fraction 60%. 5. Acid reflux disease. PLAN: 1. Decrease IV fluids. Currently patient is on Zithromax, amoxicillin. 2. Presbyesophagus and hiatal hernia. Continue on IV Pepcid. Currently she is on p.o. 3. Hypothyroidism on Synthroid. 4. Hypertension on Cozaar. 5. Discontinue Naprosyn. 6. Acid reflux disease on omeprazole 40 mg daily. 7. Continue physical therapy evaluation. 8. Living will do not resuscitate and will follow up. LEVEL OF DOCUMENTATION: 35 minutes. cc: MD Ike Harmon MD
[2019-01-27] MEDS: DITROPAN PO SCH (22:32)
[2019-01-27] MEDS: SEROQUEL PO SCH (22:32)
[2019-01-27] MEDS: LOVENOX SUBQ SCH (22:32)
[2019-01-27] MEDS: LIPITOR PO SCH (22:32)
[2019-01-28] MEDS: DUONEB (A & A) INH SCH ×4 (03:35→20:00)
[2019-01-28] MEDS: AUGMENTIN LIQUID PO SCH ×3 (06:36→22:13)
--- NOTE | 2019-01-28 08:20 | Diag Imaging Result Doc PS360 ---
EXAM: CHEST-2 VIEWS - 01/28/2019 HISTORY: hypoxia TECHNIQUE: Chest two views COMPARISON: 01/27/2019 one view chest FINDINGS: Heart size appears normal. There are ill-defined bilateral infiltrates which appear to have decreased. There is no substantial pleural effusion or pneumothorax identified. IMPRESSION: Ill-defined bilateral infiltrates, decreased from prior. Electronically signed by Erik Sharpe 01/28/2019 8:18 AM
[2019-01-28] MEDS: LASIX IV SCH (10:47)
[2019-01-28] MEDS: PRILOSEC PO SCH (10:47)
[2019-01-28] MEDS: KLOR-CON PO SCH (10:48)
[2019-01-28] MEDS: VITAMIN D PO SCH (10:48)
[2019-01-28] MEDS: MIRALAX PO SCH (10:48)
[2019-01-28] MEDS: MUCINEX DM PO SCH ×2 (10:48→22:13)
[2019-01-28] MEDS: CULTURELLE PO SCH (10:48)
[2019-01-28] MEDS: LEXAPRO PO SCH (10:48)
[2019-01-28] MEDS: SYNTHROID PO SCH (10:49)
[2019-01-28] MEDS: ASPIRIN PO SCH (10:49)
[2019-01-28] MEDS: ZITHROMAX 500 MG/NS 500 MG/250 ML IVPB IV SCH (11:45)
[2019-01-28] MEDS ORDERED: LASIX IV ONE (15:38)
--- NOTE | 2019-01-28 17:24 | PROGRESS NOTE ---
DATE: 01/28/2019 SUBJECTIVE: The patient is doing little better. She denies of any choking. OBJECTIVE: On examination, temperature is 98 degrees, pulse is 85, blood pressure 140/70.HEENT: Within normal limits. Neck is supple. No lymphadenopathy. Chest has bilateral air entry. Heart sounds are regular. Belly is soft, nontender. Good bowel sounds. No peripheral edema, cyanosis. No obvious neurological deficits. DIAGNOSTIC STUDIES: None reported. Chest x-ray: Ill-defined bilateral infiltrates decreased from prior. ASSESSMENT AND PLAN: Aspiration pneumonia due to presbyesophagus and hiatal hernia. Lasix was given. Continue on Zithromax and amoxicillin and Prilosec and repeat the chest x-ray in the morning. Discussed with the family at bedside. She is walking well with physical therapy, and Dr. Garduno is going to follow up. LEVEL OF DOCUMENTATION: 25 minutes. cc: MD Ike Harmon MD
[2019-01-28] MEDS: PEPCID PO SCH (18:14)
[2019-01-28] MEDS: ROBITUSSIN-DM PO PRN (18:23)
[2019-01-28] MEDS: HALL'S COUGH LOZENGE MT PRN (18:23)
[2019-01-28] MEDS: DITROPAN PO SCH (22:12)
[2019-01-28] MEDS: SEROQUEL PO SCH (22:12)
[2019-01-28] MEDS: LIPITOR PO SCH (22:13)
[2019-01-28] MEDS: LOVENOX SUBQ SCH (22:13)
[2019-01-28] MEDS: PHENERGAN WITH CODEINE LIQUID PO SCH (22:28)
[2019-01-29] MEDS: DUONEB (A & A) INH SCH ×2 (03:35→07:56)
[2019-01-29] MEDS: AUGMENTIN LIQUID PO SCH ×2 (06:24→12:06)
[2019-01-29 06:47] LABS: BASO# 0.08 X1000 (0.0-0.2); BASO% 1.1 % (0.0-0.8); EOS# 0.47 X1000 (0.0-0.7); EOS% 6.4 % (0.0-10.0); HEMATOCRIT 38.3 % (37.0-47.0); HEMOGLOBIN 12.5 g/dL (12.0-16.0); LYMPH# 1.61 X1000 (1.2-3.4); LYMPH% 21.8 % (20.5-51.1); MCH 29.5 PG (27-31); MCHC 32.6 g/dL (33-37); MCV 90.3 FL (81-99); MONO# 0.81 X1000 (0.11-0.59); MPV 9.1 FL (7.4-10.4); NEUT# 4.41 X1000 (1.4-6.5); NEUT% 59.7 % (42.2-75.2); PLT 431 X1000 (130-400); RBC 4.24 XMIL (4.2-5.4); RDW 12.7 % (11.5-14.5); WBC 7.38 X1000 (4.8-10.8)
[2019-01-29 07:17] LABS: CALCIUM 8.9 mg/dL (8.8-10.2); CREATININE 1.1 mg/dL (0.5-0.9); POTASSIUM 3.4 mmol/L (3.5-5.1)
[2019-01-29] MEDS: MUCINEX DM PO SCH (08:36)
[2019-01-29] MEDS: ASPIRIN PO SCH (08:36)
[2019-01-29] MEDS: SYNTHROID PO SCH (08:37)
[2019-01-29] MEDS: LEXAPRO PO SCH (08:37)
[2019-01-29] MEDS: VITAMIN D PO SCH (08:37)
[2019-01-29] MEDS: KLOR-CON PO SCH (08:37)
[2019-01-29] MEDS: PRILOSEC PO SCH (08:37)
[2019-01-29] MEDS: LASIX IV SCH (08:37)
[2019-01-29] MEDS: CULTURELLE PO SCH (08:37)
[2019-01-29] MEDS: COZAAR PO SCH (08:37)
[2019-01-29] MEDS: MIRALAX PO SCH (08:37)
--- NOTE | 2019-01-29 09:43 | Diag Imaging Result Doc PS360 ---
EXAM: CHEST-2 VIEWS HISTORY: hypoxia TECHNIQUE: Chest two views COMPARISON: 01/28/2019 FINDINGS: Poor inspiratory effort. There are small pleural effusions. No cardiomegaly. There are increased interstitial markings throughout both lungs. These are slightly less pronounced in the mid right lung. No consolidation. IMPRESSION: Mild interval improvement. Electronically signed by Ming Rizo 01/29/2019 9:40 AM
--- NOTE | 2019-01-29 11:01 | DISCHARGE SUMMARY ---
ADMISSION DATE: 01/17/2019 DISCHARGE DATE: 01/29/2019 HISTORY: Ms. Ramierz was admitted to the hospital with acute bronchitis, possible pneumonia, dehydration, and some mental status change. Laboratory Data in the hospital, chest x-ray showed small bilateral infiltrates with possible pulmonary edema. X-rays have been done. Infiltrates got worse, and then they improved also. CT scan of the chest was performed which revealed possibility of pulmonary fibrosis with bilateral infiltrates, and some element of cardiomegaly with bilateral pleural effusion and pulmonary edema. No definite evidence of pulmonary emboli was reported. X-rays have been repeated, and they have been improving. Today's chest x-ray done on the showed definite improvement bilaterally. An echocardiogram Doppler revealed right atrium normal, moderate tricuspid regurgitation, and moderate left atrial enlargement present. Normal left ventricular size. EF was 55 to 60 degrees. COURSE IN HOSPITAL: She had congestive heart failure as well as pneumonia and some pulmonary fibrosis. She was treated accordingly. Dr. Hunt was consulted. She agreed with the current management. There was strong suspicion for aspiration. She can tolerate a GI soft diet which we will continue. We will discharge her to [facility] today. FINAL DIAGNOSES: 1. Aspiration pneumonia. 2. Congestive heart failure. 3. Acute left ventricular failure which is probably diastolic. 4. Acute failure. 5. History of hypertension. 6. History of stroke. 7. She had some early metabolic encephalopathy probably from dehydration. 8. Her potassium is 3.4. Today, we will supplement that. cc: Ike Garduno MD
[2019-01-29 11:30] VITALS: BP 101/62
[2019-01-29] MEDS: ZITHROMAX 500 MG/NS 500 MG/250 ML IVPB IV SCH (12:01)
--- NOTE | 2019-01-29 15:30 | PROGRESS NOTE ---
DATE: 01/29/2019 SUBJECTIVE: Ms. Garcia is doing better. CBC and electrolytes are normal. Chest x-ray shows further improvement. I personally feel like [facility] -[facility] cc: Ike Garduno MD
[2019-01-29] MEDS ORDERED: KLOR-CON PO SCH (21:00)
== END 2019-01-29 14:41 | DRG 177 ==
LOC: DIRADM 12:14 → 4N 12:21
PROVIDERS: ADMIT Internal Medicine; ATTEND Internal Medicine
CPT/HCPCS: 36415; 70450; 71010; 71020; 71045; 71046; 71250; 74220; 80048; 80053; 81001; 83880; 84443; 85025; 87040; 87088; 93005; 93010; 93306; 94640; 94761; 97110; 97162; 97530; A9270; J0456; J0696; J1650; J1940; J3480; J7042